=== PATIENT | female | born 1965 | race Caucasian/White ===

== ENCOUNTER 2016-09-06 11:52 | Observation (INO) | payer OTHER ==
[~2016-09-06] VITALS: Ht 162.6 cm; Wt 68.0 kg
[~2016-09-06 11:52] MED LIST: ALBUTEROL0.09 MG/A1 INH; ALPRAZOLAM1 M2 PO; ALPRAZOLAM1 MG PO; AMBIEN (MONOGRAP5 MG PO; ASPIR 8181 MG PO; CALCITRATE950 MG PO; CHLORASEPTI1 LOZ/PAC PO; CIPRO500 M1 PO; COUMADIN 3 MG TA3 MG PO; COUMADIN 5 MG TA5 MG PO; COUMADIN 6 MG TA6 MG PO; DELTASONE20 MG PO; DILAUDID2 M1 PO; DOCUSATE SODIU100 M3 PO; DOLOPHINE HCL10 MG PO; DOLOPHINE10 MG PO; ESCITALOPRAM OX20 MG PO; FERROUS SULFAT325 M1 PO; HYDROXYZINE HCL50 M1 PO; LIDOCAINE HCL 330 M1 PO; LIDODERM 5% PAT1 PAT EXT; LOVENOX 6060 MG/0.6 SC; MASON NATURAL325 MG PO; METHADONE HC10 MG/M1 PO; METHADONE HCL10 M1 PO; METHADONE HCL10 MG PO; MOTRIN800 MG PO; MULTIVITAMIN1 TAB PO; NAPROSYN500 M1 PO; ONDANSETRON ODT4 M1 PO; PERCOCET 325 MG1 TA2 PO; PREDNISONE 20MG20 MG PO; PREDNISONE10 MG PO; PRILOSEC 20MG C20 MG PO; ROXICODONE5 MG PO; Robitussin PO; TESSALON PERLE100 MG PO; TYLENOL500 MG PO; VENTOLIN H0.09 MG/Ac INH; VITAMIN B121000 MC2 PO; WARFARIN SODIUM5 MG PO; XANAX 0.25MG0.25 MG PO; XANAX1 M1 PO; XYLOCAINE MPF 1% TOP; ZITHROMAX Z-PA250 M1 PO; ZOFRAN ODT4 MG PO; ZOLPIDEM TART10 MG PO
--- NOTE | 2016-09-06 12:04 | NUR ---
PT STATES SHE IS HAVING ABD PAIN WAS SEEN IN FEBRUARY HAD STENT PUT IN THAT WAS INFECTED. PT SPOKE WITH DR. KITCHEN OFFICE TODAY AND STATES SHE HAD APPT. WITH HIM AND TOLD THEM THAT SHE WAS IN PAIN AND THEY TOLD HER TO COME TO ED.
--- NOTE | 2016-09-06 12:19 | NUR ---
PT ADVISED TO REMAIN NPO
--- NOTE | 2016-09-06 12:52 | ED GI/GU/ABDOMINAL COMPLAINT ---
History of Present Illness General Chief Complaint: Abdominal Pain/Flank Pain Stated Complaint: ABD PAIN NEEDS STENT REMOVED Source: patient Exam Limitations: no limitations Vital Signs & Intake/Output Vital Signs & Intake/Output Vital Signs Date Time Temp Pulse Resp B/P Pulse O2 O2 Flow FiO2 Ox Delivery Rate 09/06 1654 98.1 68 18 149/73 96 Room Air 09/06 1341 88 130/74 09/06 1314 98 Room Air 09/06 1204 98.0 76 16 158/91 95 Room Air Allergies Coded Allergies: venom-honey bee (BEE VENOM (HONEY BEE)) (THROAT CLOSES 03/02/16) Reconcile Medications Alprazolam 1 MG TABLET 1 TAB PO 4 TIMES/DAY ANXIETY (Reported) Aspirin (Ecotrin*) 81 MG TABLET.DR 1 TAB PO DAILY HEART/BLOOD (Reported) Escitalopram Oxalate 20 MG TABLET 1 TAB PO DAILY MENTAL HEALTH (Reported) Ferrous Sulfate 325 MG (65 MG IRON) TABLET 1 TAB PO BID SUPPLEMENT (Reported) Meloxicam 7.5 MG TABLET 1 TAB PO BID PAIN/INFLAMMATION (Reported) Methadone HCl 10 MG/ML ORAL.CONC 100 MG PO DAILY CHRONIC PAIN (Reported) Multivitamin W/Iron, Minerals (Multivitamins With Iron) 1 EACH TAB.CHEW 1 TAB PO DAILY SUPPLEMENT (Reported) [place]-3 Fatty Acids/Fish Oil (Fish Oil 1,000 MG Softgel) (Unknown Strength) CAPSULE (Unknown Dose) PO DAILY SUPPLEMENT (Reported) Triage Note: PT STATES SHE IS HAVING ABD PAIN WAS SEEN IN FEBRUARY HAD STENT PUT IN THAT WAS INFECTED. PT SPOKE WITH DR. KITCHEN OFFICE TODAY AND STATES SHE HAD APPT. WITH HIM AND TOLD THEM THAT SHE WAS IN PAIN AND THEY TOLD HER TO COME TO ED. Triage Nurses Notes Reviewed? yes ? N Is pt currently ? No Onset: Abrupt Duration: week(s): (1), constant, continues in ED Timing: recent history Quality/Severity: moderate, sharpness, severe Location: right upper quadrant Radiation: no radiation Activities at Onset: none No Modifying Factors: none HPI: 51-year-old female comes into emergency room for further evaluation of right upper abdominal pains being going on for the past week. Patient reports that she has a history of infected bile duct stents. She has a history of cholecystectomy and complete hysterectomy as well as appendectomy. 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 She was due to see him today but due to the fact that she was having increased pain she called the office and they told her to come here to the hospital. She denies any vomiting. Denies any fever. Pain is sharp. Getting progressively worse. (ARELY PORTILLO) Past History Travel History Traveled to [place] past 21 day No Medical History Any Pertinent Medical History? 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 (fibromyalgia, DJD.) Other Medical Hx: Fibromyalgia/DJD. History of MRSA: No History of VRE: No History of CDIFF: No Pneumonia Vaccine: 02/19/15 Surgical History Surgical History: appendectomy, cholecystectomy, EL FEMUR FX/SX/SCREWS uterine ablation 2004 Psychosocial History Who do you live with Patient/Self Services at Home None What is your primary language Yoruba Tobacco Use: Current Daily Use Daily Tobacco Use Amount/Type: =< 4 Cigarettes daily ETOH Use: denies use Illicit Drug Use: denies illicit drug use Family History Family History, If Any: FATHER ([place] at 44 years). MOTHER ([place], from head trauma). , Age 60+. GRAND MOTHER Relation not specified for: FH: peptic ulcer disease Hx Contributory? No (ARELY PORTILLO) Review of Systems Review of Systems Constitutional: Reports: no symptoms. EENTM: Reports: no symptoms. Respiratory: Reports: no symptoms. Cardiovascular: Reports: no symptoms. GI: Reports: see HPI. Genitourinary: Reports: no symptoms. Musculoskeletal: Reports: no symptoms. Skin: Reports: no symptoms. Neurological/Psychological: Reports: no symptoms. Hematologic/Endocrine: Reports: no symptoms. Immunologic/Allergic: Reports: no symptoms. All Other Systems: Reviewed and Negative (ARELY PORTILLO) Physical Exam Physical Exam General Appearance: well developed/nourished, no apparent distress, alert Head: atraumatic, normal appearance Eyes: Bilateral: normal appearance, EOMI. Ears, Nose, Throat, Mouth: hearing grossly normal, moist mucous membrane Neck: normal inspection, full range of motion Respiratory: normal breath sounds, no respiratory distress Cardiovascular: regular rate/rhythm Gastrointestinal: soft Back: normal inspection Extremities: normal range of motion Neurologic/Psych: awake, alert, oriented x 3, normal gait, normal mood/affect Skin: intact, normal color Core Measures ACS in differential dx? No Severe Sepsis Present: No Septic Shock Present: No (SYLWIA LUCERO,ARELY) Progress Differential Diagnosis: AAA, AMI, appendicitis, biliary colic, bowel obstruction , colon cancer, cholecystitis, diverticulitis, ectopic , endometritis, gastritis, hepatitis, hernia, hemorrhoids, kidney stone, Rebeca-Cortney tear, ovarian cyst, ovarian torsion, pancreatitis, PID/cervicitis, peptic ulcer, PUD/ GERD, perforated viscous, SBO, threatened AB, UTI/pyelo Plan of Care: Orders Procedure Date/time Status Nothing by Mouth 09/07 B Active CBC WITHOUT DIFFERENTIAL 09/07 0600 Active BASIC ELECTROLYTES PLUS BUN&CR 09/07 0600 Active Regular Diet 09/06 D Complete Pathway - chart 09/06 1657 Active Pathway - chart 09/06 1648 Active House Staff 09/[address] in observation 09/06 1635 Active Patient Data 09/06 1603 Active OXYGEN SETUP (GEN) 09/06 1457 Active Saline Lock 09/06 1457 Active Vital Signs 09/06 1457 Active Activity/Ambulation 09/06 1457 Active Code Status 09/06 1457 Active URINALYSIS 09/06 1244 Complete LIPASE 09/06 1244 Complete COMPREHENSIVE METABOLIC PANEL 09/06 1244 Complete CBC WITHOUT DIFFERENTIAL 09/06 1244 Complete AMYLASE 09/06 1244 Complete Intake & Output 09/06 1219 Active VTE Mechanical Prophylaxis 09/06 UNK Active Current Medications Sig/Richi Start time Last Medication Dose Stop Time Status Admin Escitalopram Oxalate 10 MG DAILY 09/07 1000 UNVr (Lexapro) Acetaminophen 650 MG Q6P PRN 09/06 1700 UNVr (Tylenol) Alprazolam 1 MG FOUR TIMES A DAY PRN 09/06 1700 UNVr (Xanax) 09/13 1659 Morphine Sulfate 2 MG Q4P PRN 09/06 1700 UNVr (Morphine) Ondansetron HCl 4 MG Q6P PRN 09/06 1700 UNVr (Zofran) Oxycodone/ 1 TAB Q6P PRN 09/06 1700 UNVr Acetaminophen (Percocet) Laboratory Tests 09/06/16 1424: Urinalysis LIGHT H, Urine Color YEL, Urine Clarity CLEAR, Urine pH 6.0, Ur Specific [place] >= 1.030, Urine Protein TRACE H, Urine Ketones TRACE H, Urine Nitrite NEG, Urine Bilirubin NEG@ICTO, Urine Urobilinogen 0.2, Ur Leukocyte Esterase NEG, Ur Microscopic SEDIMENT EXAMINED, Urine RBC RARE, Urine WBC RARE, Ur Epithelial Cells RARE, Urine Bacteria FEW H, Urine Mucus RARE, Urine Hemoglobin NEG, Urine Glucose NEG 09/06/16 1332: Anion Gap 13, Estimated GFR > 60, BUN/Creatinine Ratio 17.5, Glucose 101 H, Calcium 9.0, Total Bilirubin 0.4, AST 38 H, ALT 40, Alkaline Phosphatase 101, Total Protein 7.7, Albumin 4.4, Globulin 3.3, Albumin/Globulin Ratio 1.3, Amylase 51, Lipase 109, CBC w Diff NO MAN DIFF REQ, RBC 4.24, MCV 80.5 L, MCH 27.0, RDW 17.1 H, MPV 7.4, Gran % 52.1, Lymphocytes % 39.1, Monocytes % 5.6, Eosinophils % 2.3, Basophils % 0.9, Absolute Granulocytes 2.8, Absolute Lymphocytes 2.1, Absolute Monocytes 0.3, Absolute Eosinophils 0.1, Absolute Basophils 0, PUBS MCHC 33.5 Diagnostic Imaging: Viewed by Me: Ultrasound. Discussed w/RAD: Ultrasound. Radiology Impression: EXAM TYPE: US - US-LIMITED ABDOMEN EXAMINATION: US ABDOMEN LIMITED CLINICAL INFORMATION: History of cholecystectomy and stent placement. Evaluate bile duct dilatation.. COMPARISON: Ultrasound images from 11/18/2009. ERCP from 03/04/2016. TECHNIQUE: Real-time imaging of the right upper quadrant abdominal viscera. FINDINGS: PANCREAS: The pancreatic tail is obscured by bowel gas. The visualized portions of the pancreatic head, neck and body are unremarkable. No evidence of pancreatic ductal dilatation. LIVER: Liver appears diffusely hyperechoic, suggestive of steatosis. No focal lesions are seen. No intrahepatic bile duct dilatation. GALLBLADDER: Status post cholecystectomy. COMMON DUCT: Common bile duct cannot be visualized. The visible segment of the common hepatic duct is 5-6 mm diameter. RIGHT KIDNEY: The right kidney measures 9.2 cm in length and has normal cortical thickness and echotexture. No hydronephrosis or nephrolithiasis. FREE FLUID: None. IMPRESSION: 1. Liver is diffusely hyperechoic, suggestive of steatosis. 2. Common duct is suboptimally visualized. The visualized segment of the common hepatic duct is normal in size (5-6 mm diameter). 3. No free fluid in Morison's pouch. DICTATED BY: REX SAAVEDRA MD DATE/TIME DICTATED:09/06/161349 POKER ROOM MANAGER:ALTAF DATE/TIME TRANSCRIBED:09/06/161349 CONFIDENTIAL, DO NOT COPY WITHOUT APPROPRIATE AUTHORIZATION. <Electronically signed in Other Vendor System> SIGNED BY: REX SAAVEDRA MD 09/06/16 4011 Initial ED EKG: none (ARELY PORTILLO) Departure Departure Disposition: STILL A PATIENT Condition: Stable Clinical Impression Primary Impression: Intractable abdominal pain Secondary Impressions: Biliary stones Referrals: MATILDA CASTRO,REBEKAH Mayo (PCP/Family) Departure Forms: Customer Survey General Discharge Information Observation Note Spoke With: DUGLAS LAYNE MD Physician Advisor Notified: BRANDEN CASTRO,JASON Velasquez Place Patient In: Non-ED OBS Care Area Rationale for Observation: My rational for observation is as follows . Spoke with Dr. Rodas from gastroenterology. He is going to do an ERCP on the patient to remove the stent as well as remove the residual stones. Patient will require IV pain control. Patient would do poorly as an outpatient. She is not very compliant. (ARELY PORTILLO) PA/COMPENSATION AND HRIS ANALYST Co-Sign Statement Statement: ED Attending supervision documentation- x I saw and evaluated the patient. I have also reviewed all the pertinent lab results and diagnostic results. I agree with the findings and the plan of care as documented in the PA's/COMPENSATION AND HRIS ANALYST's documentation. [] I have reviewed the ED Record and agree with the PA's/COMPENSATION AND HRIS ANALYST's documentation. [] Additions or exceptions (if any) to the PAs/COMPENSATION AND HRIS ANALYST's note and plan are summarized below: [] (ALMA ROSA CASTRO,LINO)
[2016-09-06 13:44] LABS: ABSOLUTE BASOPHIL COUNT 0 /CUMM (0.0-0.2); ABSOLUTE EOSINOPHIL COUNT 0.1 /CUMM (0.0-0.7); ABSOLUTE GRANULOCYTE CT 2.8 /CUMM (1.4-6.5); ABSOLUTE LYMPH COUNT 2.1 /CUMM (1.2-3.4); ABSOLUTE MONOCYTE COUNT 0.3 /CUMM (0.10-0.60); BASOPHIL % 0.9 % (0.0-2.0); EOSINOPHIL % 2.3 % (0-5); GRANULOCYTE % 52.1 % (42.2-75.2); HEMATOCRIT 34.1 % (37-47); MEAN CORPUSCULAR HGB CONC 33.5 G/DL (33.0-37.0); MEAN CORPUSCULAR VOLUME 80.5 FL (81.0-99.0); MEAN PLATELET VOLUME 7.4 FL (7.4-10.4); PLATELET COUNT 250 /CUMM (130-400); RBC DISTRIBUTION WIDTH 17.1 % (11.5-14.5); RED BLOOD CELL CT 4.24 /CUMM (4.20-5.40); WHITE BLOOD CELL COUNT 5.3 /CUMM (4.8-10.8)
[2016-09-06] MEDS ORDERED: MULTIVITAMINS1 EACH PO (13:53)
[2016-09-06] MEDS ORDERED: METHADONE10 MG/1 M2 PO (13:54)
[2016-09-06] MEDS ORDERED: FERROUS SULFAT325 M3 PO (13:55)
[2016-09-06] MEDS ORDERED: MELOXICAM7.5 M1 PO (13:55)
[2016-09-06] MEDS ORDERED: FISH OIL 1,0001 EAC1 PO (13:56)
[2016-09-06] MEDS ORDERED: ASPIRIN EC81 M1 PO (13:56)
--- NOTE | 2016-09-06 13:57 | NUR ---
IV EST AND LABS DRAWN AND SENT (BLUE, SSTX2, LAV, PRIDE, PINK) AND MEDICATED PER eMAR
--- NOTE | 2016-09-06 13:59 | ULTRASOUND REPORT ---
EXAMINATION: US ABDOMEN LIMITED CLINICAL INFORMATION: History of cholecystectomy and stent placement. Evaluate bile duct dilatation.. COMPARISON: Ultrasound images from 11/18/2009. ERCP from 03/04/2016. TECHNIQUE: Real-time imaging of the right upper quadrant abdominal viscera. FINDINGS: PANCREAS: The pancreatic tail is obscured by bowel gas. The visualized portions of the pancreatic head, neck and body are unremarkable. No evidence of pancreatic ductal dilatation. LIVER: Liver appears diffusely hyperechoic, suggestive of steatosis. No focal lesions are seen. No intrahepatic bile duct dilatation. GALLBLADDER: Status post cholecystectomy. COMMON DUCT: Common bile duct cannot be visualized. The visible segment of the common hepatic duct is 5-6 mm diameter. RIGHT KIDNEY: The right kidney measures 9.2 cm in length and has normal cortical thickness and echotexture. No hydronephrosis or nephrolithiasis. FREE FLUID: None. IMPRESSION: 1. Liver is diffusely hyperechoic, suggestive of steatosis. 2. Common duct is suboptimally visualized. The visualized segment of the common hepatic duct is normal in size (5-6 mm diameter). 3. No free fluid in Morison's pouch.
--- NOTE | 2016-09-06 14:46 | NUR ---
NIC DAO AT BEDSIDE TO DISCUSS PLAN FOR ADMISSION
--- NOTE | 2016-09-06 15:30 | NUR ---
PT REPORTING RETURN OF PAIN, DENIES ACTIVE NAUSEA. NIC DAO NOTIFIED.
--- NOTE | 2016-09-06 15:41 | NUR ---
DR LAYNE RIVERTON HOSPITALIST AT BEDSIDE
--- NOTE | 2016-09-06 16:32 | NUR ---
HOUSE STAFF IN ROOM FOR EVALUATION
--- NOTE | 2016-09-06 16:33 | NUR ---
PT HAS BED ASSIGNMENT 209-2. RN NOTIFIED.
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
--- NOTE | 2016-09-06 17:19 | NUR ---
REPORT GIVEN TO RECEIVING RN AND DISTRIBUTION CALLED. MEDICATED WITH METHADONE PER eMAR
[2016-09-06 18:00] VITALS: BP 130/100
[2016-09-06 20:00] VITALS: BP 160/86
--- NOTE | 2016-09-06 20:50 | NUR ---
LATE ENTRY NSG NOTE: PATIENT ARRIVED TO FLOOR VIA WHEELCHAIR ACCOMPANIED BY DISTRIBUTION; PATIENT AWAKE A/OX3; BP ELEVATED AT 130/100 (MD FIGUEROA AWARE); ROOM AIR SATTING 98%; STATES PAIN TO RIGHT SIDE OF ABD IS 6/10; PATIENT INDEPENENT AT BASELINE; ORIENTED TO ROOM; CALL [place] IN REACH; WILL CONT TO MONITOR;
[2016-09-06 22:06] VITALS: BP 132/82
--- NOTE | 2016-09-07 05:41 | NUR ---
NURSING NOTE: PT GIVEN A PAIN MED DURING DOWNTIME @ 0510 FOR 5/10 PAIN.
--- NOTE | 2016-09-07 07:23 | PN- Housestaff ---
HENRY CASTRO,UVALDO 09/07/16 0723: Subjective Follow-up For: Retained biliary stent Right upper quadrant abdominal pain Subjective: Patient seen and examined. She is seen sitting upright in bed resting comfortably. She appears to be in no acute distress. She reports sleeping well last night and that her pain was well-controlled with the prescribed regimen. Currently she reports that her abdominal pain is persistent and mildly worse than last night that she has moved around a bit this morning. Otherwise she denies any new subjective complaints. Additionally she denies any lightheadedness/dizziness, headache, fever, chills, chest pain, shortness of breath, nausea, vomiting, diarrhea. No overnight events reported. Review of Systems Constitutional: Reports: see HPI. Objective Last 24 Hrs of Vital Signs/I&O Vital Signs Date Time Temp Pulse Resp B/P B/P Pulse O2 O2 Flow FiO2 Mean Ox Delivery Rate 09/07 1600 97.9 63 20 142/82 96 Room Air 09/07 0736 98.2 86 20 140/77 98 09/06 2206 98.2 63 18 132/82 95 09/06 2000 160/86 09/06 1800 98.2 68 19 130/100 98 Nasal Cannula 09/06 1755 98 Room Air Intake & Output 09/07 1600 09/07 0800 09/07 0000 Intake Total 0 120 Output Total 200 Balance 0 -80 Intake, Oral 0 120 Output, Urine 200 Patient 68.039 kg Weight Physical Exam General Appearance: Alert, Oriented X3, Cooperative, No Acute Distress Other Physical Findings: General -well-developed, well-nourished middle-aged woman in no acute distress HEENT - NCAT, PERRL, EOMI, anicteric sclera Cardio - S1, S2 w/o murmurs/gallops/rubs Resp - CTA bilaterally w/o wheezing/rhochi/crackles GI - soft, moderate diffuse abdominal tenderness, mildly distended without guarding or rigidity, bowel sounds present, Quintero sign positive Neuro - Awake and alert, CN II - XII grossly intact Extremities - no edema, pulses intact Current Medications: Current Medications Sig/Richi Start time Last Medication Dose Route Stop Time Status Admin Acetaminophen 650 MG Q6P PRN 09/06 1700 AC PO Alprazolam 1 MG FOUR TIMES A DAY PRN 09/06 170 AC 09/07 PO 09/13 1659 0816 Ampicillin Sodium/ 1,500 MG ONCE ONE 09/07 1215 DC Sulbactam Sodium IV 09/07 1244 Sodium Chloride 100 ML Docusate Sodium 100 MG DAILY 09/07 1000 AC 09/07 PO 0819 Escitalopram Oxalate 10 MG DAILY 09/07 1000 AC 09/07 PO 0818 Glucagon 1 MG .STK-MED ONE 09/07 1434 DC IV PUSH 09/07 1435 Hydromorphone HCl 0.4 MG Q4P PRN 09/07 1015 AC 09/07 IV 1017 Influenza Virus 0.5 ML ONCE ONE 09/06 1830 DC Vaccine IM 09/06 1831 Iopamidol 19 ML .STK-MED ONE 09/07 1431 DC IV 09/07 1432 Lidocaine 50 ML .STK-MED ONE 09/07 1434 DC TOP 09/07 1435 Lidocaine 2 JIMENEZ .STK-MED ONE 09/07 1434 DC TOP 09/07 1435 Methadone HCl 110 MG DAILY 09/07 1608 AC 09/07 PO 1627 Methadone HCl 10 MG DAILY 09/06 1649 AC 09/06 PO 1711 Morphine Sulfate 2 MG Q4P PRN 09/06 1700 DC IV Ondansetron HCl 4 MG Q6P PRN 09/06 1700 AC IV Oxycodone/ 1 TAB Q6P PRN 09/06 1700 DC 09/06 Acetaminophen PO 1843 Patient Medication 1 ED .STK-MED ONE 09/07 1354 DC Teaching ED 09/07 1355 Polyethylene Glycol 17 GM DAILY 09/07 1000 CAN PO Senna/Docusate Sodium 2 TAB DAILY 09/07 1000 AC 09/07 PO 0818 Last 24 Hrs of Lab/Thanh Results Last 24 Hrs of Labs/Mics: Laboratory Tests 09/07/16 0659: Anion Gap 9, Estimated GFR > 60, BUN/Creatinine Ratio 16.3, Total Bilirubin 0.3, Direct Bilirubin 0.2, AST 30, ALT 41, Alkaline Phosphatase 91, Total Protein 6.3 , Albumin 3.5, PT 11.4, INR 1.09, CBC w Diff NO MAN DIFF REQ, RBC 3.94 L, MCV 80.8 L, MCH 27.0, RDW 17.5 H, MPV 7.5, Gran % 44.5, Lymphocytes % 45.8, Monocytes % 6.6, Eosinophils % 2.5, Basophils % 0.6, Absolute Granulocytes 1.8, Absolute Lymphocytes 1.9, Absolute Monocytes 0.3, Absolute Eosinophils 0.1, Absolute Basophils 0, PUBS MCHC 33.5 Assessment/Plan Assessment: Patient was maintained nothing by mouth overnight with her pain controlled with intravenous morphine and oral Percocet. She was given 1 dose of Unasyn and taken to the GI suite for an ERCP. She tolerated the procedure well and was resumed on a clear liquid diet. She is to remain in the hospital overnight as an extended observation and to be discharged home tomorrow with instruction to follow-up with Dr. Rodas the near future as an outpatient. Right upper quadrant abdominal pain Patient with history of hospital admission from 03/02/16-03/08/16 for ascending cholangitis requiring intravenous antibiotics, cholecystectomy, and ERCP with stent placement by Huy Rodas MD who was unfortunately lost to follow-up and still has her biliary stent in place. Abdominal ultrasound demonstrates hepatic steatosis and a normal common bile duct without any free fluid. ED attendings discussed findings with Dr. Rodas and it was decided that patient should be placed in hospital for possible stent replacement/removal. -General Medicine Observation -S/P ERCP -Monitor for worsening abdominal pain -Pain control -Zofran 4mg IV Q6H PRN Nausea -GI consult PTSD/Anxiety Attack/Anxiety/Depression CT PAID SEARCH ANALYST checked and doses confirmed. -Alprazolam 1mg PO Q6H PRN Anxiety -Lexapro 10mg PO daily Recurrent DVT/PE s/p IVC Filter-stable Chronic Pain-Methadone 100mg PO Daily, dose confirmed Chronic Iron Deficiency Anemia-stable, Hgb/Hct 11.4/34.1 MCV 80.5 Pain Plan-Acetaminophen/Percocet/Morphine Bowel Regimen-Senna/Colace/Miralax Diet-NPO for ERCP, start regular diet after DVT PPx-ALPS Code Status-FULL CODE Problem List: 1. Abdominal pain Pain Ratin Pain Location: RUQ Abdominal pain Pain Goal: Remain pain free Pain Plan: See assessment Tomorrow's Labs & Rationales: CBC, BEP, LFTs- s/p ERCP Consulting Request: Consulting Specialty: Gastroenterology JOEY CASTRO,HUGO 09/07/16 1537: Attending MD Review Statement Attending Statement Attending MD Statement: examined this patient, discuss w/resident/PA/CAKE FROSTER, agreed w/resident/PA/CAKE FROSTER, reviewed EMR data (avail), discussed with nursing, discussed with case mgmt, amended to note Attending Assessment/Plan: Patient seen and examined. Not in acute distress. Denies nausea vomiting. Afebrile and hemodynamically stable. Complained of right upper quadrant abdominal pain controlled with current regimen. ERCP was done today by the gastroenterology service. Patient was found to have choledocholithiasis. Stones were extracted during the procedure. Recommendations: -Continue liquid diet as recommended by the gastroenterology service. -Monitor for improvement of her abdominal pain status post procedure. -Extended observation for 24 hours and reevaluate in the morning. -Obtain records from [facility] to determine abdominal surgery done. She reports that she had total abdominal hysterectomy and bilateral salpingo-oophorectomy for fibroids.
[2016-09-07 07:36] VITALS: BP 140/77
[2016-09-07 08:07] LABS: ABSOLUTE BASOPHIL COUNT 0 /CUMM (0.0-0.2); ABSOLUTE EOSINOPHIL COUNT 0.1 /CUMM (0.0-0.7); ABSOLUTE GRANULOCYTE CT 1.8 /CUMM (1.4-6.5); ABSOLUTE LYMPH COUNT 1.9 /CUMM (1.2-3.4); ABSOLUTE MONOCYTE COUNT 0.3 /CUMM (0.10-0.60); BASOPHIL % 0.6 % (0.0-2.0); EOSINOPHIL % 2.5 % (0-5); GRANULOCYTE % 44.5 % (42.2-75.2); HEMATOCRIT 31.9 % (37-47); MEAN CORPUSCULAR HGB CONC 33.5 G/DL (33.0-37.0); MEAN CORPUSCULAR VOLUME 80.8 FL (81.0-99.0); MEAN PLATELET VOLUME 7.5 FL (7.4-10.4); PLATELET COUNT 209 /CUMM (130-400); RBC DISTRIBUTION WIDTH 17.5 % (11.5-14.5); RED BLOOD CELL CT 3.94 /CUMM (4.20-5.40); WHITE BLOOD CELL COUNT 4.1 /CUMM (4.8-10.8)
[2016-09-07 08:26] LABS: PT 11.4 SEC (9.4-12.5)
--- NOTE | 2016-09-07 12:20 | NUR ---
NURSING NOTE: PATIENT TRANSPORTED TO VIA FOR A ERCP. A&O X 3 WITH NO C/O PAIN OR DISCOMFORT.
--- NOTE | 2016-09-07 14:37 | Cons- Gastroenterology ---
General Information and HPI Consulting Request Date of Consult: 09/07/16 Requested By: HUGO COOK M.D Reason for Consult: Right upper quadrant pain Choledocholithiasis Source of Information: patient, old records History of Present Illness: 51-year-old female status post cholecystectomy who was admitted in February 2016 with ascending cholangitis, treated with ERCP, sphincteroplasty, extraction of multiple stones and placement of a plastic stent. She was noncompliant with follow-up. She now presents with right upper quadrant pain, nausea and vomiting for one week. She believes she has had a fever and chills. 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 She smokes half pack per day, and denies alcohol use. Allergies/Medications Allergies: Coded Allergies: venom-honey bee (BEE VENOM (HONEY BEE)) (THROAT CLOSES 03/02/16) Home Med List: Alprazolam 1 MG TABLET 1 TAB PO 4 TIMES/DAY ANXIETY (Reported) Aspirin (Ecotrin*) 81 MG TABLET.DR 1 TAB PO DAILY HEART/BLOOD (Reported) Escitalopram Oxalate 20 MG TABLET 1 TAB PO DAILY MENTAL HEALTH (Reported) Ferrous Sulfate 325 MG (65 MG IRON) TABLET 1 TAB PO BID SUPPLEMENT (Reported) Meloxicam 7.5 MG TABLET 1 TAB PO BID PAIN/INFLAMMATION (Reported) Methadone HCl 10 MG/ML ORAL.CONC 100 MG PO DAILY CHRONIC PAIN (Reported) Multivitamin W/Iron, Minerals (Multivitamins With Iron) 1 EACH TAB.CHEW 1 TAB PO DAILY SUPPLEMENT (Reported) [place]-3 Fatty Acids/Fish Oil (Fish Oil 1,000 MG Softgel) (Unknown Strength) CAPSULE (Unknown Dose) PO DAILY SUPPLEMENT (Reported) Current Medications: Current Medications Sig/Richi Start time Last Medication Dose Route Stop Time Status Admin Acetaminophen 650 MG Q6P PRN 09/06 1700 AC PO Alprazolam 1 MG FOUR TIMES A DAY PRN 09/06 1700 AC 09/07 PO 09/13 1659 0816 Ampicillin Sodium/ 1,500 MG ONCE ONE 09/07 1215 DC Sulbactam Sodium IV 09/07 1244 Sodium Chloride 100 ML Docusate Sodium 100 MG DAILY 09/07 1000 AC 09/07 PO 0819 Escitalopram Oxalate 10 MG DAILY 09/07 1000 AC 09/07 PO 0818 Glucagon 1 MG .STK-MED ONE 09/07 1434 DC IV PUSH 09/07 1435 Hydromorphone HCl 0.4 MG Q4P PRN 09/07 1015 AC 09/07 IV 1017 Influenza Virus 0.5 ML ONCE ONE 09/06 1830 DC Vaccine IM 09/06 1831 Iopamidol 19 ML .STK-MED ONE 09/07 1431 DC IV 09/07 1432 Lidocaine 50 ML .STK-MED ONE 09/07 1434 DC TOP 09/07 1435 Lidocaine 2 JIMENEZ .STK-MED ONE 09/07 1434 DC TOP 09/07 1435 Methadone HCl 0 .STK-MED ONE 09/06 1710 DC PO Methadone HCl 10 MG DAILY 09/06 1649 AC 09/06 PO 1711 Morphine Sulfate 2 MG Q4P PRN 09/06 1700 DC IV Ondansetron HCl 4 MG Q6P PRN 09/06 1700 AC IV Oxycodone/ 1 TAB Q6P PRN 09/06 1700 DC 09/06 Acetaminophen PO 1843 Patient Medication 1 ED .STK-MED ONE 09/07 1354 DC Teaching ED 09/07 1355 Polyethylene Glycol 17 GM DAILY 09/07 1000 CAN PO Senna/Docusate Sodium 2 TAB DAILY 09/07 1000 AC 09/07 PO 0818 Past History Travel History Traveled to [place] past 21 day No Medical History Blood Transfusion Hx: Yes Neurological: CVA, seizure EENT: NONE Cardiovascular: NONE 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 (fibromyalgia, DJD.) Other Medical Hx: Fibromyalgia/DJD. Surgical History Surgical History: appendectomy, cholecystectomy, hysterectomy, EL FEMUR FX/SX/ SCREWS uterine ablation 2004 Family History Relations & Conditions If Any: FATHER ([place] at 44 years). MOTHER ([place], from head trauma). , Age 60+. GRAND MOTHER Relation not specified for: FH: peptic ulcer disease Psychosocial History Where Do You Live? Home Who Do You Live With? child Services at Home: None Primary Language: Mexican Smoking Status: Current Everyday Smoker ETOH Use: denies use Illicit Drug Use: denies illicit drug use Living Will? unknown Power of Manager Information/HCP? unknown Functional Ability ADLs Independent: dressing, eating, toileting, bathing. IADLs Independent: housework, finances, food prep, telephone, transportation, medication admin. Review of Systems Review of Systems Constitutional: Reports: fever, malaise. EENTM: Denies: icterus, epistaxis. Cardiovascular: Denies: chest pain, syncope. Respiratory: Denies: cough, hemoptysis, short of breath. GI: Reports: see HPI. Genitourinary: Denies: dysuria, hematuria. Musculoskeletal: Denies: muscle stiffness, neck pain. Skin: Denies: jaundice, lesions. Neurological/Psychological: Reports: anxiety. Denies: cognitive dysfunction. Hematologic/Endocrine: Denies: bruising, bleeding. Exam & Diagnostic Data Vital Signs and I&O Vital Signs Date Time Temp Pulse Resp B/P B/P Pulse O2 O2 Flow FiO2 Mean Ox Delivery Rate 09/07 0736 98.2 86 20 140/77 98 09/06 2206 98.2 63 18 132/82 95 09/06 2000 160/86 09/06 1800 98.2 68 19 130/100 98 Nasal Cannula 09/06 1755 98 Room Air 09/06 1654 98.1 68 18 149/73 96 Room Air Intake & Output 09/07 1600 09/07 0400 09/06 1600 09/06 0400 09/05 1600 09/05 0400 Intake Total 0 120 Output Total 200 Balance 0 -80 Intake, Oral 0 120 Output, Urine 200 Patient 150 lb 170 lb Weight Physical Exam: Well-developed well-nourished, in no apparent distress. Alert and oriented. Skin normal without jaundice, rash or lesion. No scleral icterus. Head and neck normal. No adenopathy. Heart regular rhythm. Lungs clear bilaterally. Abdomen is soft and nondistended with normal bowel sounds, and no masses or organomegaly. There is epigastric tenderness to moderate palpation. Extremities no clubbing, cyanosis or edema. Results Pertinent Lab Results: Laboratory Tests 09/07 09/06 0659 1424 Chemistry Sodium (137 - 145 mmol/L) 140 Potassium (3.5 - 5.1 mmol/L) 4.2 Chloride (98 - 107 mmol/L) 104 Carbon Dioxide (22 - 30 mmol/L) 28 Anion Gap (5 - 16) 9 BUN (7 - 17 mg/dL) 13 Creatinine (0.5 - 1.0 mg/dL) 0.8 Estimated GFR (>60 ml/min) > 60 BUN/Creatinine Ratio (7 - 25 %) 16.3 Total Bilirubin (0.2 - 1.3 mg/dL) 0.3 Direct Bilirubin (< 0.4 mg/dL) 0.2 AST (14 - 36 U/L) 30 ALT (9 - 52 U/L) 41 Alkaline Phosphatase (<127 U/L) 91 Total Protein (6.3 - 8.2 g/dL) 6.3 Albumin (3.5 - 5.0 g/dL) 3.5 Coagulation PT (9.4 - 12.5 SEC) 11.4 INR (0.90 - 1.19) 1.09 Hematology CBC w Diff NO MAN DIFF REQ WBC (4.8 - 10.8 /CUMM) 4.1 L RBC (4.20 - 5.40 /CUMM) 3.94 L Hgb (12.0 - 16.0 G/DL) 10.7 L Hct (37 - 47 %) 31.9 L MCV (81.0 - 99.0 FL) 80.8 L MCH (27.0 - 31.0 PG) 27.0 RDW (11.5 - 14.5 %) 17.5 H Plt Count (130 - 400 /CUMM) 209 MPV (7.4 - 10.4 FL) 7.5 Gran % (42.2 - 75.2 %) 44.5 Lymphocytes % (20.5 - 51.1 %) 45.8 Monocytes % (1.7 - 9.3 %) 6.6 Eosinophils % (0 - 5 %) 2.5 Basophils % (0.0 - 2.0 %) 0.6 Absolute Granulocytes (1.4 - 6.5 /CUMM) 1.8 Absolute Lymphocytes (1.2 - 3.4 /CUMM) 1.9 Absolute Monocytes (0.10 - 0.60 /CUMM) 0.3 Absolute Eosinophils (0.0 - 0.7 /CUMM) 0.1 Absolute Basophils (0.0 - 0.2 /CUMM) 0 PUBS MCHC (33.0 - 37.0 G/DL) 33.5 Urines Urinalysis LIGHT H Urine Color (YEL,AMB,STR) YEL Urine Clarity (CLEAR) CLEAR Urine pH (5.0 - 8.0) 6.0 Ur Specific [place] (1.001 - 1.035) >= 1.030 Urine Protein (NEG,<30 MG/DL) TRACE H Urine Ketones (NEG) TRACE H Urine Nitrite (NEG) NEG Urine Bilirubin (NEG) NEG@ICTO Urine Urobilinogen (0.1 - 1.0 EU/dl) 0.2 Ur Leukocyte Esterase (NEG) NEG Ur Microscopic SEDIMENT EXAMINED Urine RBC (0 - 5 /HPF) RARE Urine WBC (0 - 2 /HPF) RARE Ur Epithelial Cells (NONE,FEW) RARE Urine Bacteria (NEG/NONE) FEW H Urine Mucus (FEW,NONE) RARE Urine Hemoglobin (NEG) NEG Urine Glucose (N MG/DL) NEG 09/06 1332 Chemistry Sodium (137 - 145 mmol/L) 142 Potassium (3.5 - 5.1 mmol/L) 4.1 Chloride (98 - 107 mmol/L) 102 Carbon Dioxide (22 - 30 mmol/L) 27 Anion Gap (5 - 16) 13 BUN (7 - 17 mg/dL) 14 Creatinine (0.5 - 1.0 mg/dL) 0.8 Estimated GFR (>60 ml/min) > 60 BUN/Creatinine Ratio (7 - 25 %) 17.5 Glucose (65 - 99 mg/dL) 101 H Calcium (8.4 - 10.2 mg/dL) 9.0 Total Bilirubin (0.2 - 1.3 mg/dL) 0.4 AST (14 - 36 U/L) 38 H ALT (9 - 52 U/L) 40 Alkaline Phosphatase (<127 U/L) 101 Total Protein (6.3 - 8.2 g/dL) 7.7 Albumin (3.5 - 5.0 g/dL) 4.4 Globulin (1.9 - 4.2 gm/dL) 3.3 Albumin/Globulin Ratio (1.1 - 2.2 %) 1.3 Amylase (30 - 110 U/L) 51 Lipase (23 - 300 U/L) 109 Hematology CBC w Diff NO MAN DIFF REQ WBC (4.8 - 10.8 /CUMM) 5.3 RBC (4.20 - 5.40 /CUMM) 4.24 Hgb (12.0 - 16.0 G/DL) 11.4 L Hct (37 - 47 %) 34.1 L MCV (81.0 - 99.0 FL) 80.5 L MCH (27.0 - 31.0 PG) 27.0 RDW (11.5 - 14.5 %) 17.1 H Plt Count (130 - 400 /CUMM) 250 MPV (7.4 - 10.4 FL) 7.4 Gran % (42.2 - 75.2 %) 52.1 Lymphocytes % (20.5 - 51.1 %) 39.1 Monocytes % (1.7 - 9.3 %) 5.6 Eosinophils % (0 - 5 %) 2.3 Basophils % (0.0 - 2.0 %) 0.9 Absolute Granulocytes (1.4 - 6.5 /CUMM) 2.8 Absolute Lymphocytes (1.2 - 3.4 /CUMM) 2.1 Absolute Monocytes (0.10 - 0.60 /CUMM) 0.3 Absolute Eosinophils (0.0 - 0.7 /CUMM) 0.1 Absolute Basophils (0.0 - 0.2 /CUMM) 0 PUBS MCHC (33.0 - 37.0 G/DL) 33.5 Assessment/Plan Assessment/Recommendations: The patient has known choledocholithiasis, and an indwelling biliary stent. She presents with pain and nausea, likely secondary to stent/biliary occlusion. There is no jaundice, evidence of cholangitis, or pancreatitis. The patient has been given antiemetics and analgesics overnight. Will proceed to ERCP, with Unasyn control chemist. Further recommendations will follow the procedure. Consult Acknowledgment - Thank you for your consult request.
--- NOTE | 2016-09-07 14:45 | Proc Note ERCP ---
ERCP Procedure Procedure Date: 09/07/16 GI Procedure(s): ERCP with stent removal, balloon sphincteroplasty, and stone life management teacher: Huy Rodas M.D. ASA Classification: III Indications: Right upper quadrant pain Choledocholithiasis with indwelling biliary stent; patient noncompliant with outpatient follow-up Instrument: duodenoscope Meds Received: endotracheal intubation, general anesthesia Patient's Tolerance: good Complications: none Procedure: The patient signed informed consent, was brought to the operating room, intubated and turned into the prone position. Intravenous anesthesia was given by anesthesiology. Pulse oximetry, blood pressure and cardiac monitoring were performed continuously throughout the procedure. The Olympus high-definition V duodenoscope was inserted into the mouth and advanced to the duodenum. There was a large hiatal hernia with probable paraesophageal component. The stomach was not examined carefully. The pyloric channel, duodenal bulb and duodenal sweep were normal. The indwelling biliary stent was removed with a snare, and then by mouth with the endoscope. It was occluded on both ends. The duodenoscope was reinserted to the duodenum. In the area of the papilla, there were converging folds, and no clearly identifiable papillary mound. Common bile duct cannulation was performed. The pancreas was not cannulated/injected. The cholangiogram demonstrated normal caliber and contour to the common bile duct, common hepatic duct, and hepatic ducts. The patient was status post cholecystectomy. There were several filling defects in the CBD. The papilla was dilated with a CRE balloon for 30 seconds, to 13.5 mm. There was no bleeding. The duct was then swept multiple times with an extraction balloon, removing 2 stones, and debris. A final occlusion cholangiogram and sweep were negative. The patient was extubated in the operating room, and brought to the recovery room in good condition. Impression: * Choledocholithiasis * Hiatal hernia with probable paraesophageal component Recommendations: * Clear liquid diet * Follow-up right upper quadrant pain CC: MATILDA CASTRO,REBEKAH Mayo
[2016-09-07 16:00] VITALS: BP 142/82
--- NOTE | 2016-09-07 16:16 | RADIOLOGY REPORT ---
EXAMINATION: XR BILIARY AND PANCREATIC ERCP CLINICAL INFORMATION: ERCP extraction of 2 biliary stones. Stent removed. COMPARISON: Right upper quadrant abdominal ultrasound dated 09/06/2016. ERCP dated 03/04/2016. TECHNIQUE: Fluoroscopic equipment was dedicated to the procedure room for performance of an ERCP with extraction of 2 biliary stones and stent removal. 15 spot films were acquired and are archived in PACS. FINDINGS: Contrast injection was made into the common bile duct and demonstrates irregularity and filling defects in the mid and distal common bile duct. The common hepatic duct and right and left intrahepatic ducts are normal in caliber without definite filling defects seen. Cystic duct remnant appears unremarkable. Gallbladder is surgically absent with clips seen in the gallbladder fossa. On final image, irregularity and filling defects in the mid and distal common bile duct remain. Please refer to procedural notes for details. Contrast is seen outlining the duodenum as well. FLUOROSCOPY TIME: 6.25 minutes. NUMBER OF IMAGES: 15 IMPRESSION: ERCP for biliary stone extraction and stent removal.
--- NOTE | 2016-09-07 20:22 | NUR ---
NURSING NOTE: PATIENT RETURNED FROM GI @ 1500. A&O X 3. VS BP142/82, HR63, R20, T97.9, SPO2 96% ON RA.
[2016-09-07 21:58] VITALS: BP 130/80
[2016-09-08 06:54] VITALS: BP 140/98
--- NOTE | 2016-09-08 07:15 | PN- Housestaff ---
See Addendum HENRY CASTRO,UVALDO 09/08/16 0715: Subjective Follow-up For: Retained biliary stent Right upper quadrant abdominal pain Subjective: Patient seen and examined. She is seen lying flat in bed resting comfortably. She appears mildly uncomfortable, but in no acute distress. She reports feeling incredibly weak today as if she were "hit by a truck". Otherwise she admits that her right upper quadrant abdominal pain has dramatically improved after the procedure yesterday and endorses a good appetite without any nausea. She does not feel safe to be discharged today given her profound weakness and would like to be further observed in the hospital. Otherwise she denies any fever, chills, lightheadedness/dizziness, chest pain, palpitations, shortness breath, cough, nausea, vomiting, diarrhea. No overnight events reported. Review of Systems Constitutional: Reports: see HPI. Objective Last 24 Hrs of Vital Signs/I&O Vital Signs Date Time Temp Pulse Resp B/P B/P Pulse O2 O2 Flow FiO2 Mean Ox Delivery Rate 09/08 0654 97.6 67 20 140/98 92 Room Air 09/07 2158 97.7 63 17 130/80 94 09/07 1600 97.9 63 20 142/82 96 Room Air Intake & Output 09/08 1600 09/08 0800 09/08 0000 Intake Total 480 Output Total Balance 480 Intake, Oral 480 Number 0 Bowel Movements Physical Exam General Appearance: Alert, Oriented X3, Cooperative, No Acute Distress Other Physical Findings: General -well-developed, well-nourished middle-aged woman appearing uncomfortable/mildly fatigued but in no acute distress HEENT - NCAT, PERRL, EOMI, anicteric sclera Cardio - S1, S2 w/o murmurs/gallops/rubs Resp - CTA bilaterally w/o wheezing/rhochi/crackles GI - soft,,nontender, nondistended bowel sounds present Neuro - Awake and alert, CN II - XII grossly intact Extremities -normal pulses, no cyanosis/clubbing/edema Current Medications: Current Medications Sig/Richi Start time Last Medication Dose Route Stop Time Status Admin Acetaminophen 650 MG Q6P PRN 09/06 1700 AC PO Alprazolam 1 MG FOUR TIMES A DAY PRN 09/06 1700 AC 09/08 PO 04/25 1659 0833 Ampicillin Sodium/ 1,500 MG ONCE ONE 09/07 1215 CAN Sulbactam Sodium IV 09/07 1244 Sodium Chloride 100 ML Docusate Sodium 100 MG DAILY 09/07 1000 AC 09/08 PO 0815 Escitalopram Oxalate 10 MG DAILY 09/07 1000 AC 09/08 PO 0815 Fentanyl Citrate 100 MCG .STK-MED ONE 09/07 1325 DC IM 09/07 1326 Fentanyl Citrate 100 MCG .STK-MED ONE 09/07 1300 DC IM 09/07 1301 Glucagon 1 MG .STK-MED ONE 09/07 1434 DC IV PUSH 09/07 1435 Hydromorphone HCl 0.4 MG Q4P PRN 09/07 1015 AC 09/08 IV 1103 Iopamidol 19 ML .STK-MED ONE 09/07 1431 DC IV 09/07 1432 Lidocaine 50 ML .STK-MED ONE 09/07 1434 DC TOP 09/07 1435 Lidocaine 2 JIMENEZ .STK-MED ONE 09/07 1434 DC TOP 09/07 1435 Methadone HCl 110 MG DAILY 09/07 1608 AC 09/08 PO 0813 Methadone HCl 10 MG DAILY 09/06 1649 DC 09/06 PO 1711 Midazolam HCl 2 MG .STK-MED ONE 09/07 1300 DC IM 09/07 1301 Ondansetron HCl 4 MG Q6P PRN 09/06 1700 AC IV Patient Medication 1 ED .STK-MED ONE 09/07 1354 DC Teaching ED 09/07 1355 Senna/Docusate Sodium 2 TAB DAILY 09/07 1000 AC 09/08 PO 0815 Last 24 Hrs of Lab/Thanh Results Last 24 Hrs of Labs/Mics: Laboratory Tests 09/08/16 0636: Anion Gap 9, Estimated GFR > 60, BUN/Creatinine Ratio 15.7, Total Bilirubin 0.4, Direct Bilirubin 0.3, AST 34, ALT 42, Alkaline Phosphatase 88, Total Protein 6.3 , Albumin 3.4 L, CBC w Diff NO MAN DIFF REQ, RBC 3.72 L, MCV 80.6 L, MCH 27.6 , RDW 16.8 H, MPV 7.8, Gran % 49.2, Lymphocytes % 42.4, Monocytes % 5.7, Eosinophils % 2.2, Basophils % 0.5, Absolute Granulocytes 2.1, Absolute Lymphocytes 1.8, Absolute Monocytes 0.3, Absolute Eosinophils 0.1, Absolute Basophils 0, PUBS MCHC 34.3 Assessment/Plan Assessment: 51-year-old woman with multiple medical problems significant past medical history of spinal admission for ascending cholangitis status post cholecystectomy and ERCP with stent placement in February 2016, recurrent DVT/PE status post IVC filter seen for evaluation of persistent abdominal pain and nausea for the past week. Patient was placed in observation on the general medicine floor after consultation with gastroenterology and made nothing by mouth in anticipation for an ERCP. Hospital day 2 Patient underwent her ERCP yesterday afternoon and tolerated the procedure well. She was placed on a clear liquid diet after the procedure. She endorses profound weakness and fatigue with generalized pain and does not feel safe to be discharged to home today. Postprocedure labs this morning remained stable and will not be further followed. Patient was able to tolerate a regular diet after some rest and was observed to be ambulating independently. Patient is to be discharged home today with instruction to follow-up with Dr. Huy Rodas as an outpatient for further evaluation and care. Right upper quadrant abdominal pain Patient with history of hospital admission from 03/02/16-03/08/16 for ascending cholangitis requiring intravenous antibiotics, cholecystectomy, and ERCP with stent placement by Huy Rodas MD who was unfortunately lost to follow-up and still has her biliary stent in place. Abdominal ultrasound demonstrates hepatic steatosis and a normal common bile duct without any free fluid. ED attendings discussed findings with Dr. Rodas and it was decided that patient should be placed in hospital for possible stent replacement/removal. 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 -Alprazolam 1mg PO Q6H PRN Anxiety -Lexapro 10mg PO daily Recurrent DVT/PE s/p IVC Filter-stable Chronic Pain-Methadone 100mg PO Daily, dose confirmed Chronic Iron Deficiency Anemia-stable, Hgb/Hct 11.4/34.1 MCV 80.5 Pain Plan-Acetaminophen/Percocet/Dilaudid Bowel Regimen-Senna/Colace/Miralax Diet-clear liquid diet, advance as tolerated DVT PPx-ALPS Code Status-FULL CODE Problem List: 1. Intractable abdominal pain Pain Ratin Pain Location: Generalized Pain Goal: Pain 4 or less Pain Plan: See assessment Tomorrow's Labs & Rationales: None Consulting Request: Consulting Specialty: Gastroenterology JOEY CASTROYEISONFermin 09/08/16 1035: Attending MD Review Statement Attending Statement Attending MD Statement: examined this patient, discuss w/resident/PA/AGRICULTURAL SCIENTIST, agreed w/resident/PA/AGRICULTURAL SCIENTIST, reviewed EMR data (avail), discussed with nursing, discussed with case mgmt, amended to note Attending Assessment/Plan: Patient seen and examined she complains of generalized pain this morning particularly in her lower back abdomen and lower extremities. She reports that after the ERCP yesterday she feels that she was hit by train. She reports a high right upper quadrant pain reported to the hospital has resolved. She feels that the generalized pain she experienced in place from being moved around for the procedure. She is requesting IV Dilaudid for pain control. It is noted that she is on methadone chronically. She reports that she doesn't feel safe enough to be discharged home today. She reports holding onto the garcia when ambulating to the bathroom this morning. This is not her baseline. On examination she is alert and oriented 3. She has no gross focal neurologic deficit. Heart sounds are regular. Lungs are clear bilaterally. She has no evidence of bruising anteriorly or posteriorly. She has no spine tenderness on examination. She has no costovertebral angle tenderness. She has no right upper quadrant tenderness on exam. Recommendations: -Bile duct stones were removed and ERCP. Patient denies any further upper quadrant pain. I LFTs remain within normal limits. -Her generalized pain is likely musculoskeletal. She however is insisting on receiving only IV Dilaudid for pain control. Add Motrin to her regimen for added pain control. Use nonpharmacological methods such as warm compresses. Nursing staff encouraged to mobilize patient. -Patient was placed on observation status on presentation to the hospital. She has been here for over 48 hours hospital. She does not feel safe to be discharged today. She reports holding onto garcia while ambulating just to the bathroom. Changed to inpatient status. Physical therapy consultation. -Patient is to follow-up with the GI service as an outpatient for management of her hepatitis C.
[2016-09-08 08:04] LABS: ABSOLUTE BASOPHIL COUNT 0 /CUMM (0.0-0.2); ABSOLUTE EOSINOPHIL COUNT 0.1 /CUMM (0.0-0.7); ABSOLUTE GRANULOCYTE CT 2.1 /CUMM (1.4-6.5); ABSOLUTE LYMPH COUNT 1.8 /CUMM (1.2-3.4); ABSOLUTE MONOCYTE COUNT 0.3 /CUMM (0.10-0.60); BASOPHIL % 0.5 % (0.0-2.0); EOSINOPHIL % 2.2 % (0-5); GRANULOCYTE % 49.2 % (42.2-75.2); MEAN CORPUSCULAR HGB 27.6 PG (27.0-31.0); MEAN CORPUSCULAR HGB CONC 34.3 G/DL (33.0-37.0); MEAN CORPUSCULAR VOLUME 80.6 FL (81.0-99.0); MEAN PLATELET VOLUME 7.8 FL (7.4-10.4); PLATELET COUNT 207 /CUMM (130-400); RBC DISTRIBUTION WIDTH 16.8 % (11.5-14.5); RED BLOOD CELL CT 3.72 /CUMM (4.20-5.40); WHITE BLOOD CELL COUNT 4.4 /CUMM (4.8-10.8)
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
--- NOTE | 2016-09-08 11:16 | NUR ---
Physical Therapy: Consult received and chart reviewed. Pt is a 51 year old female who is ambulating independently. Acute skilled PT is not indicated at this time. Thank you.
--- NOTE | 2016-09-08 13:14 | Patient Discharge Instructions ---
Discharge Instructions General Discharge Information Special Instructions: Follow up with your pattern room attendant and primary care provider after discharge. Continue all your previous home medications at their previous doses. Call 911 or return to the ED should your symptoms return, or if you develop fever, chills, or signs of infection. Acute Coronary Syndrome Inclusion Criteria At DC or during hospital stay patient has or had the following: ACS DIAGNOSIS No Discharge Core Measures Meds if any: Prescribed or Continued at Discharge Meds if any: NOT Prescribed or Continued at Discharge Congestive Heart Failure Inclusion Criteria At DC or during hospital stay patient has or had the following: CHF DIAGNOSIS No Discharge Core Measures Meds if any: Prescribed or Continued at Discharge Meds if any: NOT Prescribed or Continued at Discharge Cerebrovascular accident Inclusion Criteria At DC or during hospital stay patient has or had the following: CVA/TIA Diagnosis No Discharge Core Measures Meds if any: Prescribed or Continued at Discharge Meds if any: NOT Prescribed or Continued at Discharge Venous thromboembolism Inclusion Criteria VTE Diagnosis No VTE Type NONE VTE Confirmed by (Test) NONE Discharge Core Measures - Per Current guidelines, there needs to be overlap - treatment for the first 5 days of Warfarin therapy. - If discharged on Warfarin prior to 5 days of - overlap therapy, the patient will need to be - assessed for post discharge needs including - *Post discharge parental anticoagulation - *Warfarin and/or parental anticoagulation education - *Follow up date to check INR post discharge At least 5 days overlap therapy as Inpatient No Meds if any: Prescribed or Continued at Discharge Note: Overlap Therapy is Warfarin and Anticoagulant Meds if any: NOT Prescribed or Continued at Discharge
[2016-09-08] MEDS ORDERED: NAPROSYN500 M1 PO (13:19)
[2016-09-08 14:17] VITALS: BP 128/76
--- NOTE | 2016-09-08 21:11 | Event Note ---
Event Note Event Note: Patient has been refusing to be discharged through the day because of persistent nausea. Patient was reassured by the day team and she stated that her will come pick her up at 9PM. However, patient now says the can't pick her up anymore due to personal issues. Moreover she does not feel comfortable going home due to a new onset diarrhea. regional program manager and nursing coil winding supervisor notified about the situation. The patient was offered a cab ride. The night team held a discussion with the patient along with case repairer and nursing coil winding supervisor at bedside. Patient was counseled and reassured that diarrhea can be expected in the setting of recent ERCP and current Colace use. She understands that she may be financially responsible for the hospital stay tonight because she is medically stable for discharge but the patient complains that we are trying to kick her out in the middle of the night and she is not going to get in the cab with her ongoing diarrhea and nausea.
--- NOTE | 2016-09-08 21:46 | NUR ---
09/08 CASE MGMT AT APPROX 7:55 PM RECEIVED A CALL THAT PT MEDICALLY CLEARED BY [facility] BUT THAT PT WAS FEELING NAUSEOUS AND WAS REFUSING TO BE DISHARGED. MET WITH PT WITH DR HAMMOND. SPOKE WITH PT AND ASSURED HER SHE WAS MEDICALLY CLEARED AND WE DISCUSSED WITH PT THAT AFTER BEING MEDICALLY CLEARED THAT INSURACE DOESN'T APPROVE A QUALIFYING STAY AND SHE MAY BE LIABLE FOR THE HOSPITAL STAY AFTER DR D/C PT. PT STATES HER CANT PICK HER UP AT THIS TIME DUE TO HE HAS TO PICK HIS SON UP IN [place] AT 9 OM FROM SCHOOL. I ASKED IF SHE COULD POSSIBLY GET A [facility] AFTERWARDS FROM HER AT 9 PM. PT AGREED. TRACY MURRAY WAS ALSO TO CALL AND REQUEST HE PICK PT UP AFTER D/C THIS EVENING WHEN HE IS ABLE TO. APPROX 8:00 PM RECEIVED A CALL FROM [facility]OL[facility] GROUP CAPTAIN ASKING IF PT COVERED UNDER [facility] FOR TRANSPORTATION SO WE CAN BOOK TRANSORTATION FOR PT BECAUSE NOW IS REFUSING TO PICK PT UP TONIGHT AFTER D/C. CALL PLACED TO [facility] AND [facility] SET UP FOR PT WITH REF # [id number] IN WHICH THEY GAVE A 30 MINUTE TO 3 HOUR WINDOW. WENT UP STAIRS TO INFORM RN AND RN GROUP CAPTAIN WAS THERE ALONG WITH RN STATING PT WAS AGAIN REFUSING D/C DUE TO PERSISTENT NAUSEA. MEDICAL TEAM INCLUDING DR ALBERTO WENT IN TO SPEAK WITH PT WELL RN GROUP CAPTAIN, NURSING AND MYSELF AND AGAIN READDRESSED THAT PT WAS MEDICALLY CLEARED AND THAT SHE WOULD BE ISSUED A DENIAL LETTER DUE TO STAY NOT BEING COVERED UNDER INSURANCE. PT NOTIFIED THAT [facility] WAS NOTIFIED AND BOOKED AND PT AWARE AND IN AGREEMENT WITH [facility] FOR D/C.
== END 2016-09-08 21:40 ==
LOC: ENRESERVTM → ENRESERVDT → ERH 11:52 → ERHI 14:57 → 2NB 14:57 → ERHI 16:12 → EDBEDREQ 16:48 → 2NB 17:41 → ENPENDDIS 09-08 14:28 → 2NB 09-08 21:40
PROVIDERS: Internal Medicine Hematology & Oncology; Internal Medicine Interventional Cardiology; Physician Assistant Medical; ADMIT Internal Medicine
DX: K80.50 Calculus of bile duct without cholangitis or cholecystitis without obstruction (principal); K44.9 Diaphragmatic hernia without obstruction or gangrene; Z86.718 Personal history of other venous thrombosis and embolism; M79.7 Fibromyalgia; F17.200 Nicotine dependence, unspecified, uncomplicated; Z85.9 Personal history of malignant neoplasm, unspecified; Z23 Encounter for immunization
CPT/HCPCS: 36415; 81001; 82436; 96374; 96376; G0008; G0378; J1610; J2405; J3101; Q2036; Q9967

== ENCOUNTER 2017-09-20 12:00 | Emergency (ER) | payer OTHER ==
[~2017-09-20] VITALS: Ht 165.1 cm; Wt 65.8 kg
[~2017-09-20 12:00] MED LIST changes: +ASPIRIN EC81 M1 PO; +FERROUS SULFAT325 M3 PO; +FISH OIL 1,0001 EAC1 PO; +MELOXICAM7.5 M1 PO; +METHADONE10 MG/1 M2 PO; +MULTIVITAMINS1 EACH PO
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
--- NOTE | 2017-09-20 13:35 | RADIOLOGY REPORT ---
EXAMINATION: XR KNEE, RIGHT XR KNEE, LEFT CLINICAL INFORMATION: Fall. Pain. COMPARISON: None TECHNIQUE: Four views of each knee. FINDINGS: RIGHT KNEE: There is a partially visualized healed fracture in the mid femoral diaphysis. There is no fracture or dislocation. No joint effusion is seen. There is marginal spurring with mild narrowing of the medial and lateral compartments. There are enthesophytes about the superior and inferior aspect of the patella. The soft tissues appear normal. LEFT KNEE: There is a partially visualized healed fracture in the mid femoral diaphysis. There is no fracture or dislocation. No joint effusion is seen. There is narrowing of the medial compartment. There are enthesophytes at the superior and inferior aspect of the patella. The soft tissues appear normal. IMPRESSION: - Osteoarthritic changes at both knees with narrowing of the medial and lateral compartments on the right and narrowing of the medial compartment on the left. - Partially visualized healed fractures in the bilateral proximal femoral diaphyses.
[2017-09-20 14:10] VITALS: BP 125/69
--- NOTE | 2017-09-20 14:10 | ULTRASOUND REPORT ---
EXAMINATION: BILATERAL LOWER EXTREMITY VENOUS ULTRASOUND CLINICAL INFORMATION: History of bilateral DVT in the past. Now with same feeling in the legs. Rule out acute DVT. COMPARISON: Left lower extremity venous Doppler ultrasound dated 06/29/2014 and 11/03/2013. TECHNIQUE: Doppler spectral analysis and color flow Doppler imaging was performed of the lower extremities. Compression and augmentation maneuvers were performed. FINDINGS: Bilateral lower extremity venous Doppler ultrasound: The right and left common femoral vein and femoral vein show chronic peripheral mural thickening and incomplete compressibility, consistent with chronic DVT. No superimposed acute deep venous anastomosis is seen. The greater saphenous vein takeoff bilaterally, profunda femoral vein takeoff bilaterally, and popliteal vein bilaterally are normally compressible with normal augmentation responses and phasic changes seen with Doppler imaging. The midcalf peroneal and posterior tibial veins are patent as well. No popliteal cyst is seen. IMPRESSION: 1. No evidence of acute deep venous thrombosis in the right or left lower extremity. 2. Chronic DVT in both lower extremities involving the common femoral and femoral veins.
[2017-09-20] MEDS ORDERED: MOBIC15 M1 PO (14:34)
[2017-09-20] MEDS ORDERED: VOLTAREN100 GM TOP (15:00)
== END 2017-09-20 15:08 ==
LOC: ERH 12:00
DX: I82.501 Chronic embolism and thrombosis of unspecified deep veins of right lower extremity (principal); I82.502 Chronic embolism and thrombosis of unspecified deep veins of left lower extremity; M17.0 Bilateral primary osteoarthritis of knee
CPT/HCPCS: 73562-LT; 73562-RT; 93970; 96374